=== PATIENT | female | born 1960 | race Caucasian/White ===

== ENCOUNTER 2017-04-09 21:36 | Inpatient (IN) | payer OTHER ==
--- NOTE | ~2017-04-09 | DS ---
Discharge Summary [address] [place]. [address] NAME: JOCE ZAIDI : 62 STATUS : DIS IN PAT#: [id number] AGE: 56 ADM/REG DATE : 04/09/17 MR#: [id number] REPORT SERV DATE: 04/15/17 DICTATED BY: ERROL SANTOYO DATE: 04/14/17 REPORT STATUS : Draft TRANSCRIBED BY: MODL DATE: 04/14/17 ADMISSION DATE: 04/09/2017 DISCHARGE DATE: 04/14/2017 VASCULAR SURGERY: Dr. Givens. FINAL DIAGNOSES: 1. Right lower extremity cellulitis with ulceration and chronic lymphedema. 2. Status post urinary tract infection. Unfortunately, no organism found. 3. Chronic hypoxic respiratory failure. 4. Chronic obstructive pulmonary disease. 5. OHS. 6. Obstructive sleep apnea. 7. Atrial fibrillation with history of pulmonary embolism and deep venous thrombosis. 8. Coronary artery disease. 9. Chronic diastolic congestive heart failure. 10.Hypertension. 11.Diabetes. 12.Tobacco abuse. 13.Morbid obesity. 14.History of seizures, noncompliance. 15.Chronic pain. 16.Hyponatremia. DIAGNOSTIC EXAMS: Ultrasound: Duplex showing monophasic waveforms, ABIs appeared normal. The monophasic waveform, however, could reflect distal aortic or iliac stenosis. Ultrasound of the lower extremities showing no DVT. HOSPITAL COURSE: Please refer to the H and P done by Dr. Rodriguez dated 04/09/2017. Briefly, this is a 56-year-old female, who comes in with cellulitis and ulceration. The patient has a history of diabetes, atrial fibrillation, CAD, chronic diastolic congestive heart failure, chronic hypoxic respiratory failure, yet continues to smoke and noncompliant with her medications. She was recently treated for MRSA bacteremia in [place], and then at outpatient, she was following up with Dr. Givens for her chronic wound. The patient went to [place] for back and leg pain and had a fall. The patient was found to have cellulitis of the right lower extremity and was referred for admission here. The patient was admitted by Dr. Rodriguez and was treated with antibiotics. We got Vascular Surgery involved and they prescribed Unna boots and said to follow up on an outpatient basis. Meanwhile, the patient's blood sugar has been elevated. We got critical care educator involved, and they figured out that the patient is erratic in taking her long-acting and short-acting insulin. She does not even know the difference between the two. With extensive counseling, she was taught about this, and I told her the importance of being adherent. We started giving her the medications for her hemoglobin that is elevated at 10.9. Unfortunately there was one point wherein she became hypoglycemic that we have to cut down on her insulin requirements. The patient was seen by Physical Therapy as well and they recommended that the patient go home with home health and home PT. So, if the patient remained stable today, she will be Discharge Summary [address] [address] NAME: JOCE ZAIDI : 62 STATUS : DIS IN PAT#: [id number] AGE: 56 ADM/REG DATE : 04/09/17 MR#: [id number] REPORT SERV DATE: 04/15/17 DICTATED BY: ERROL SANTOYO DATE: 04/14/17 REPORT STATUS : Draft TRANSCRIBED BY: ASHLEY DATE: 04/14/17 going home. We will arrange for home health and home PT. She will be on the following medications. Lipitor 20 mg at bedtime. Sinemet 25/100 one tab three times a day, Coreg 6.25 mg twice a day, Colace 100 mg p.r.n., Duricef 1000 mg twice a day. I will give her a prescription for another week, Lantus 30 units subcu twice a day, Claritin 10 mg a day, multivitamin once a day, Bactroban ointment to affected areas, Nystatin twice a day to affected areas, Requip 10 mg three times a day, Xarelto 20 mg a day, Symbicort 160/4.5 inhaled twice a day, DuoNebs inhaled q.4 hours p.r.n., albuterol t.i.d., QVAR two puffs three times a day. She will be off the Lanoxin, diltiazem, and Robaxin, but she can continue her Nitrostat p.r.n., Percocet 10/325 q.4 hours p.r.n., MiraLAX one packet a day for constipation, potassium 20 mEq a day, Bumex 0.5 mg twice a day, Zonegran 100 mg three times a day, Spiriva one capsule inhaled a day. The patient would probably benefit from Pain Management and further diabetic classes or spanish tutor, but I would defer this to her PCP, which she needs to follow up in a week or two and follow up with Dr. Givens as scheduled. This has been explained to the patient at length in front of the family member and they agreed and understood the plan. NIKKO/ASHLEY Errol Santoyo M.D. / [id number] CC: Inessa Jerome AMIE SIMS
--- NOTE | ~2017-04-09 | HP ---
History And Physical [address] [place]. [address] NAME: JOCE ZAIDI : 62 STATUS : ADM IN PAT#: [id number] AGE: 56 ADM/REG DATE : 04/09/17 MR#: [id number] REPORT SERV DATE: 04/10/17 DICTATED BY: SPENCER RODRIGUEZ DATE: 04/09/17 REPORT STATUS : Draft TRANSCRIBED BY: MODL DATE: 04/09/17 DATE OF ADMISSION: 04/09/2017 CHIEF COMPLAINT: Right lower extremity cellulitis and ulcerations. Patient admitted as direct admission/transfer from outside hospital facility. HISTORY OF PRESENT ILLNESS: Obtained from the patient as well as from reports from the emergency room department at [facility] as well as our prior medical records which were thoroughly reviewed. According to the information available, patient is a 56-year-old white woman with a complex medical history, known to our Hospitalist Service from prior admissions who was actually admitted at [facility] from 03/18/2017 until 03/21/2017. At that time, she was treated with Zyvox for MRSA bacteremia as well as was noticed to have increasing problem with her chronic lymphedema of both lower extremities and chronic venous stasis as well as developing chronic wounds on both calves. She was supposed to follow up with Dr. Givens, Vascular Surgery, and also she apparently followed up in her account with the [facility]. Patient presented today to the emergency department at [facility] in [place], [place] by EMS because of back and leg pain. She apparently fell out of the bed two days ago and since then hurt her back and has continued to have back pain and right lower leg pain. In the emergency room at [facility], patient was investigated and was noticed to have extensive cellulitis of the right calf with a rather increase in the larger wound on the posterior aspect of the calf, slightly elevated white cell count. Due to her medical problems and history as well as with apparent failure of outpatient treatment on her wound care and cellulitis of the lower extremity, patient was referred to the Hospitalist Service as a direct admission being transferred to [facility] in [place] for further management and evaluation and vascular surgery consult and followup. Presently, patient has arrived and complaining of pain with vital signs in stable range. Apparently, patient has received treatment prior to leaving [facility] with IV Rocephin and IV vancomycin 1 g. PAST MEDICAL HISTORY: Very complex, significant for COPD, on chronic home oxygen dependency on 4 to 6 L by nasal cannula with known obstructive sleep apnea and obesity hypoventilation syndrome. The patient apparently, according to prior history, has used BiPAP at night in the past, apparently not using it at this moment. History of prior recurrent PEs and DVTs; history of ongoing tobacco abuse despite strong advice to quit doing so; history of CHF with chronic diastolic dysfunction; history of hypertension; apparently history of coronary artery disease; history of chronic atrial fibrillation, presently on chronic anticoagulation with Xarelto; history of diabetes type 2, insulin dependent; history of morbid obesity; history of hyperlipidemia; history of chronic lymphedema/chronic wounds of the lower extremity, being followed by a [facility] and also by Dr. 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 PAST SURGICAL HISTORY: Oophorectomy with reported history of ovarian cancer (?), history of History And Physical [address] [address] NAME: JOCE ZAIDI : 62 STATUS : ADM IN [facility]#: [id number] AGE: 56 ADM/REG DATE : 04/09/17 MR#: [id number] REPORT SERV DATE: 04/10/17 DICTATED BY: SPENCER RODRIGUEZ DATE: 04/09/17 REPORT STATUS : Draft TRANSCRIBED BY: MODL DATE: 04/09/17 vocal cord surgery in the past, history of hernia repairs, history of tonsillectomy. ALLERGIES: TO HALDOL, MORPHINE WHICH MAKES HER AGITATED AND CONFUSED, HYDROCODONE, AND DEMEROL. HOME MEDICATION LIST: Presently not verified. According to the discharge medication list from [facility] on 03/21/2017, patient was supposed to take Symbicort inhalation b.i.d., Sinemet 25/100 one p.o. t.i.d., Coreg 6.25 one p.o. b.i.d., Claritin 10 mg p.o. daily, Crestor 20 mg p.o. at bedtime, nifedipine 60 mg p.o. b.i.d., Lasix 40 mg p.o. b.i.d., Neurontin 300 mg p.o. t.i.d., Lantus 50 units subcutaneously b.i.d. and sliding scale of NovoLog, Percocet 10/325 one p.o. t.i.d. p.r.n. pain, albuterol MDI two puffs q.4 hours p.r.n. shortness of breath, Zantac 150 mg p.o. b.i.d., Requip 5 mg p.o. t.i.d., Spiriva one inhalation daily, vitamin B12 1000 mcg p.o. daily, Xarelto 20 mg take two tablets p.o. daily (?). The patient also has been prescribed Zyvox 600 mg p.o. b.i.d., to complete the course through 04/01/2017. Please note that the above medication list might not be the one that is most up-to-date and is going to be addressed and corrected by the pharmacy consult. FAMILY HISTORY: Significant for diabetes, coronary artery disease, hypertension. SOCIAL HISTORY: The patient continues to smoke. Denies alcohol abuse. Denies illicit or recreational drug abuse. The patient lives at home with family, presently disabled. REVIEW OF SYSTEMS: As per H and P, otherwise negative in all review of systems. Please note that the comprehensive review of system was obtained and pertinent positives are including in the H and P. PHYSICAL EXAMINATION: GENERAL: Pleasant, cooperative, but pale and ill appearing, in mild distress due to the pain. VITAL SIGNS: At the time of arrival to our hospital, blood pressure 128/56, pulse 98, respiratory rate 18, temperature 98.2, oxygen saturation 100%, apparently on 4 L by nasal cannula. HEENT: Pupils equal, round, and reactive to light. Extraocular movements intact. Throat, mild erythema. No exudate. No signs of tenderness. NECK: Supple. No JVD. No bruits. No thyromegaly. No lymph nodes. LUNGS: Bilateral air entry, diminished distant breath sounds bilaterally. Good airway movement and few bibasilar crackles. No wheezing. HEART: Positive S1, S2. Distant heart sounds. Regular rate and rhythm with positive use of mitral regurgitation, murmur at the apex. No rub. No gallop. PMI not displaced by palpation. ABDOMEN: Positive bowel sounds. Soft, nontender, no guarding, no hepatosplenomegaly. Morbidly obese. EXTREMITIES: Decreased range of motion, osteoarthritic changes. No clubbing, no cyanosis, +1 pulses. Bilateral lower extremity redness and chronic stasis dermatitis and edema with cellulitic changes on the right calf up to the knee with apparently ulceration and more acute looking chronic ulceration in the back of the right calf. Presently clean with no History And Physical [address] [address] NAME: JOCE ZAIDI : 62 STATUS : ADM IN [facility]#: [id number] AGE: 56 ADM/REG DATE : 04/09/17 MR#: [id number] REPORT SERV DATE: 04/10/17 DICTATED BY: SPENCER RODRIGUEZ DATE: 04/09/17 REPORT STATUS : Draft TRANSCRIBED BY: ASHLEY DATE: 04/09/17 significant purulent drainage, but reported from [facility] as having a purulent drainage. NEUROLOGIC: Alert and oriented x3. Grossly nonfocal. Anxious. Cranial nerves II through XII grossly intact. Motor strength 5/5, symmetric and bilateral. Deep tendon reflexes 2/2, symmetrical and bilateral. BACK: With decreased range of motion. Bilateral focal localized tenderness. No CVA tenderness. SKIN: No bruises, no rashes, no lacerations (besides the above mentioned changes at lower extremities). SIGNIFICANT LABORATORY DATA: No laboratory data available as patient is a direct admission/transfer from outside hospital facility. Review of the medical records sent over with patient from [facility] showed sodium 127, potassium 5.3, chloride 93, bicarbonate 29, BUN 49 creatinine 1.4 (normal creatinine below 1.1). Liver function tests within normal limits. Glucose 272. Lactic acid 0.7 which is within normal limits. Urinalysis showing cloudy urine, small LE, positive nitrates with white cells 23 and many bacteria. White cell count 12.1, hemoglobin 10.6, platelet count 315. ASSESSMENT AND PLAN AND PROBLEM LIST: The patient is a 56-year-old white woman looking much older than stated age, admitted with progressive wound and cellulitis of the right lower extremity. IMPRESSION: 1. Right lower extremity ulcerations/wound with progressive right lower extremity cellulitis with bilateral chronic lymphedema and chronic stasis dermatitis, apparently failed outpatient treatment. For all the above, we are going to admit her on the Hospitalist Service under telemetry setting. We are going to continue IV antibiotics with IV vancomycin. We are going to obtain blood cultures and wound cultures and continue to monitor clinically, provide wound care and wound care consult. Obtain consultation with Dr. Givens, vascular surgeon, as she was supposed to follow with him this week. 2. Urinary tract infection (likely) without hematuria. As per urinalysis from outside hospital facility, we are going to continue antibiotics with IV Rocephin for now and obtain another urine and a urine culture. 3. Endocrinologic problems. a. Diabetes type 2, insulin dependent with complications. We are going to continue long-acting insulin, Lantus or Levemir, and a sliding scale, provide diabetic education. b. Morbid obesity, encouraged weight loss. c. Hyperlipidemia, mixed type. Continue statin, provide low cholesterol diet. 4. Acute kidney injury on chronic kidney disease, stage II to stage III. We are going to monitor renal function for now. We will obtain urinalysis. Avoid nephrotoxic agents. Strict I's and O's and daily weights. 5. Pulmonary. a. Chronic obstructive pulmonary disease with chronic home oxygen dependent. b. Obstructive sleep apnea and obesity hypoventilation syndrome. History And Physical [address] [address] NAME: JOCE ZAIDI : 62 STATUS : ADM IN [facility]#: [id number] AGE: 56 ADM/REG DATE : 04/09/17 MR#: [id number] REPORT SERV DATE: 04/10/17 DICTATED BY: SPENCER RODRIGUEZ DATE: 04/09/17 REPORT STATUS : Draft TRANSCRIBED BY: MODKostas DATE: 04/09/17 c. Tobacco dependency disorder, [id number]. d. History of recurrent pulmonary embolism. For all the above, we are going to continue oxygen supplementation at patient's has a baseline oxygen apparently 4 L of oxygen. Please note that at times it seemed that, in our medical records, the patient has 100% saturation even in room air. We are going to continue bronchodilator therapy and provide smoking cessation education and offer nicotine replacement therapy as a nicotine patch 21 mg daily. 6. Cardiovascular. a. Essential hypertension. b. History of coronary artery disease, presently stable. c. Congestive heart failure by history with chronic diastolic dysfunction. d. Atrial fibrillation, chronic, present on admission. For all the above, we are going to continue the patient's Coreg. We are going to continue anticoagulation with Xarelto. We are going to obtain EKG and place him on telemetry, check CK and troponin I. hold the Lasix for now as it is uncertain if the patient was still on it recently. 7. Reported recent MRSA bacteremia, on Zyvox until 04/01/2017 as per discharge summary from [place]. We are going to obtain blood cultures and continue to monitor clinically. Low threshold for involving Infectious Disease consult. 8. Neurologic and psychiatric problem. a. Parkinson disease. b. Restless leg syndrome. c. History of cerebrovascular accident with cerebrovascular disease and mild residual right upper extremity weakness. d. Seizure disorder, also by history. For all the above, we are going to continue patient's Requip, patient's Sinemet, and continue to monitor clinically. 9. Chronic anticoagulation on Xarelto. We are going to continue Xarelto 20 mg daily. 10.Poor medical compliance. PROGNOSIS: Moderate for this admission and rather poor in medium and long-term. Please note, the patient is a full code at this moment as discussed with the patient at bedside. Please note, also the written H and P, and written orders and instructions. RF/ASHLEY Spencer Rodriguez M.D. / [id number] CC: Adiel Givens M.D.
[~2017-04-09 21:36] MED LIST: ALB4 PO; BACDS PO; BACTROINT TOP; BUDESONIDE NAS; CARDCD180 PO; CLARIT10 PO; CLONAZEPAM PO; COREG6 PO; DIAM250B PO; DIGITEK0.25 MG PO; DSS PO; DUONEB INH; ENDOCET1 TA3 PO; HALF81 PO; HUMALIN R; HUMULIN R1 ML SC; INSNOVR; INSNOVR SC; IVVIBRA PO; K500 PO; KLONO5 PO; KLOR-CON M2020 MEQ PO; L80 PO; LANTUS; LANTUS SC; LEVEMIR SC; LIPITOR20 PO; LYRICA200 MG PO; METHOC500B PO; METHOC750B PO; MIRALAXPKT PO; NEUR300 PO; NITROSTAT0.4 MG SL; NOVOLOG SC; NYSTOP100000 MG TOP; OMNICEF300 PO; P10 PO; P20 PO; PERCOCET1 TA4 PO; PROVHFA INH; QVAR80 MCG INH; REFRES1 OPH; REQUIP5 MG PO; RHINOCORT NAS; RHINOCORT NASAL NAS; SILVASORB TOP; SIN25 PO; SPIRIVA INH; SYMBICORT 160/41 INH INH; T300 PO; THEO24300 PO; XARELTO20 MG PO; ZANTAC 150 PO; ZANTAC150 MG PO; ZONEGRAN PO; [UNRECOGNIZED DRUG - OTHER]; [UNRECOGNIZED DRUG - OTHER]; [UNRECOGNIZED DRUG - OTHER]; [UNRECOGNIZED DRUG - OTHER]
[2017-04-09 23:45] LABS: BASOPHILS 0.3 %; BASOPHILS ABSOLUTE 0.03 10/3/uL (0.0-0.16); EOSINOPHILS 7.7 %; EOSINOPHILS ABSOLUTE 0.76 10/3/uL (0.0-0.53); HEMATOCRIT 30.9 % (36.0-48.0); HEMOGLOBIN 10.1 g/dL (12.0-16.0); IMMATURE GRANULOCYTES 0.5 %; IMMATURE GRANULOCYTES ABSOLUTE 0.05 10/3/uL (0.0-0.11); LYMPHOCYTES 19.9 %; LYMPHOCYTES ABSOLUTE 1.96 10/3/uL (0.67-4.30); MEAN CORPUS HGB CONC 32.7 g/dL (32.0-36.0); MEAN CORPUSCULAR HEMOGLOB 27.7 pg (26.0-34.0); MEAN CORPUSCULAR VOLUME 84.7 fL (80-100); MEAN PLATELET VOLUME 9.3 fL (9.2-13.0); MONOCYTES 7.8 %; MONOCYTES ABSOLUTE 0.77 10/3/uL (0.21-1.20); NEUTROPHILS 63.8 %; PLATELET COUNT 294 10/3/uL (150-400); RED CELL COUNT 3.65 10/6/uL (4.0-5.6); WHITE BLOOD CELLS 9.9 10/3/uL (4.5-10.5)
[2017-04-09 23:46] LABS: MANUAL DIFF NO %
[2017-04-10 00:03] LABS: A/G RATIO 0.5 (0.7-1.9); ALBUMIN 2.4 G/DL (3.5-5.0); ALKALINE PHOSPHATASE 79 U/L (45-117); CALCIUM, SERUM 8.7 MG/DL (8.5-10.4); CHLORIDE, SERUM 100 MMOL/L (96-112); CO2 (CARBON DIOXIDE) 30 MMOL/L (24-34); CPK 67 U/L (0-200); CREATININE 1.24 MG/DL (0.55-1.02); GFR AFRICAN AMERICAN 57 ML/MIN (>=60); GFR NON AFRICAN AMERICAN 49 ML/MIN (>=60); GLOBULIN 4.6 G/DL (2.5-4.1); PHOSPHORUS, SERUM 3.7 MG/DL (2.5-4.5); SGOT(AST) 7 U/L (5-40); SGPT(ALT) 11 U/L (5-65); SODIUM, SERUM 135 MMOL/L (135-148); TROPONIN I <0.02 NG/ML (<0.05)
[2017-04-10 00:04] LABS: BUN (BLOOD UREA NITROGEN) 45 MG/DL (6-23); CK-MB 2.1 NG/ML; GLUCOSE, SERUM 230 MG/DL (60-99); POTASSIUM, SERUM 4.7 MMOL/L (3.5-5.3); TOTAL BILIRUBIN < 0.1 MG/DL (0-1.2)
[2017-04-10 01:07] LABS: PROCALCITONIN 0.07 ng/mL (<0.5)
[2017-04-10 02:51] LABS: ASCORBIC ACID (UR NOT ORDER) NEG (NEG); BILIRUBIN, URINE NEGATIVE (NEG); KETONE, URINE NEGATIVE (NEG); LEUKOCYTE ESTERASE(NOT OR LARGE (NEG); WBC (NOT ORDERED) (RFLEX) 155 (0-5)
[2017-04-10] MEDS ORDERED: DIAM250B PO (04:36)
[2017-04-10] MEDS ORDERED: DUONEB INH (04:37)
[2017-04-10] MEDS ORDERED: ALB4 PO (04:37)
[2017-04-10] MEDS ORDERED: LIPITOR20 PO (04:38)
[2017-04-10] MEDS ORDERED: SYMBICORT 160/41 INH INH (04:38)
[2017-04-10] MEDS ORDERED: QVAR80 MCG INH (04:39)
[2017-04-10] MEDS ORDERED: SIN25 PO (04:39)
[2017-04-10] MEDS ORDERED: COREG6 PO (04:39)
[2017-04-10] MEDS ORDERED: LAN25 PO (04:40)
[2017-04-10] MEDS ORDERED: CARDCD180 PO (04:40)
[2017-04-10] MEDS ORDERED: DSS PO (04:41)
[2017-04-10] MEDS ORDERED: LANTUS SQ (04:47)
[2017-04-10] MEDS ORDERED: METHOC750B PO (04:48)
[2017-04-10] MEDS ORDERED: CLARIT10 PO (04:48)
[2017-04-10] MEDS ORDERED: NYSTATPOW TOP (04:49)
[2017-04-10] MEDS ORDERED: NITROSTAT0.4 MG SL (04:49)
[2017-04-10] MEDS ORDERED: MIRALAX POWDER1 PKT PO (04:50)
[2017-04-10] MEDS ORDERED: PERCOCET 10/3251 TAB PO (04:50)
[2017-04-10] MEDS ORDERED: KDUR20 PO (04:51)
[2017-04-10] MEDS ORDERED: LYRICA200 MG PO (04:57)
[2017-04-10] MEDS ORDERED: ZANTAC 150 PO (04:58)
[2017-04-10] MEDS ORDERED: REQUIP5 MG PO (04:59)
[2017-04-10] MEDS ORDERED: XARELTO20 MG PO (04:59)
[2017-04-10] MEDS ORDERED: SILVASORB TOP (05:01)
[2017-04-10] MEDS ORDERED: T300 PO (05:02)
[2017-04-10] MEDS ORDERED: SPIRIVA INH (05:03)
[2017-04-10] MEDS ORDERED: BUDESONIDE INH (05:03)
[2017-04-10] MEDS ORDERED: BACTROINT TOP (05:05)
[2017-04-10] MEDS ORDERED: ZONEGRAN PO (05:06)
[2017-04-10] MEDS ORDERED: BUMEX PO (05:07)
[2017-04-11 06:02] LABS: CALCIUM, SERUM 8.6 MG/DL (8.5-10.4); CHLORIDE, SERUM 102 MMOL/L (96-112); CO2 (CARBON DIOXIDE) 28 MMOL/L (24-34); CREATININE 1.06 MG/DL (0.55-1.02); GFR AFRICAN AMERICAN 68 ML/MIN (>=60); GFR NON AFRICAN AMERICAN 59 ML/MIN (>=60); POTASSIUM, SERUM 4.8 MMOL/L (3.5-5.3); SODIUM, SERUM 136 MMOL/L (135-148)
[2017-04-11 06:09] LABS: BUN (BLOOD UREA NITROGEN) 31 MG/DL (6-23); GLUCOSE, SERUM 286 MG/DL (60-99)
[2017-04-14] MEDS ORDERED: DURICEF PO (11:35)
[2017-04-14] MEDS ORDERED: MVI PO (11:36)
[2017-04-14] MEDS ORDERED: HABIT21 TOP (11:36)
== END 2017-04-14 17:26 | disposition home or self-care (01) | DRG 638 ==
LOC: 2SO 21:36
PROVIDERS: Internal Medicine
DX: E11.622 Type 2 diabetes mellitus with other skin ulcer (principal); L03.115 Cellulitis of right lower limb; L97.211 Non-pressure chronic ulcer of right calf limited to breakdown of skin; J96.11 Chronic respiratory failure with hypoxia; N17.9 Acute kidney failure, unspecified; I50.32 Chronic diastolic (congestive) heart failure; I11.0 Hypertensive heart disease with heart failure; N18.3 Chronic kidney disease, stage 3 (moderate); I48.2 Chronic atrial fibrillation; G25.81 Restless legs syndrome; I12.9 Hypertensive chronic kidney disease with stage 1 through stage 4 chronic kidney disease, or unspecified chronic kidney disease; N39.0 Urinary tract infection, site not specified; E66.2 Morbid (severe) obesity with alveolar hypoventilation; I69.351 Hemiplegia and hemiparesis following cerebral infarction affecting right dominant side; Z68.43 Body mass index [BMI] 50.0-59.9, adult; E87.1 Hypo-osmolality and hyponatremia; G20 Parkinson's disease; I87.8 Other specified disorders of veins; W06.XXXA Fall from bed, initial encounter; G40.909 Epilepsy, unspecified, not intractable, without status epilepticus; G89.29 Other chronic pain; J44.9 Chronic obstructive pulmonary disease, unspecified; I25.10 Atherosclerotic heart disease of native coronary artery without angina pectoris; E66.01 Morbid (severe) obesity due to excess calories; E78.5 Hyperlipidemia, unspecified; G89.4 Chronic pain syndrome; Z86.14 Personal history of Methicillin resistant Staphylococcus aureus infection; Y92.003 Bedroom of unspecified non-institutional (private) residence as the place of occurrence of the external cause; Z88.8 Allergy status to other drugs, medicaments and biological substances; Z88.5 Allergy status to narcotic agent; Z82.49 Family history of ischemic heart disease and other diseases of the circulatory system; Z83.3 Family history of diabetes mellitus; Z91.19 Patient's noncompliance with other medical treatment and regimen; Z91.14 Patient's other noncompliance with medication regimen; Z86.718 Personal history of other venous thrombosis and embolism; Z86.711 Personal history of pulmonary embolism
CPT/HCPCS: 72100; 80048; 80053; 80202; 81001; 82550; 82553; 82947; 82962; 83036; 83735; 84100; 84145; 84484; 85025; 87040; 87086; 93005; 93925; 93970; 94640; 97161-GP; A9270-GY; J1170; J1200; J2405; J3370; J3475

== ENCOUNTER 2017-08-05 08:37 | Inpatient (IN) | payer OTHER ==
[~2017-08-05] VITALS: Ht 160 cm; Wt 150.0 kg
--- NOTE | ~2017-08-05 | HP ---
History And Physical [id number] [facility] [place]. [address] NAME: JOCE ZAIDI : 62 STATUS : ADM IN [facility]#: [id number] AGE: 56 ADM/REG DATE : 08/05/17 MR#: [id number] REPORT SERV DATE: 08/05/17 DICTATED BY: RAMAKRISHNA SERVIN DATE: 08/05/17 REPORT STATUS : Draft TRANSCRIBED BY: MODL DATE: 08/05/17 DATE OF ADMISSION: 08/05/2017 HISTORY OF PRESENT ILLNESS: This is a 56-year-old white female who came from [facility] for higher level of care. She was brought to that facility by ambulance early this morning because of shortness of breath in extremis. She also had issues of hypoglycemia and required glucose to correct. The patient's shortness of breath was pretty severe that showed also an abnormal arterial blood gas with a pH of 7.14, pCO2 of 108, pO2 of 121, and bicarb 37.2. There was concern for pneumonia at the [facility] facility and so the patient was given Levaquin, vancomycin, there is a question eric of Zosyn. She also got Solu-Medrol for steroids. She was intubated with Versed, etomidate, and paralytic. Pertinent labs at the [facility] showed a normal white blood cell count of 5.1, hemoglobin 9.9, platelets 174. The patient had normal BUN and creatinine of 18 and 1.3, but her serum bicarb was elevated at 39 on the metabolic panel. They reportedly did get two sets of blood cultures over there, and her lactate was normal. She also was found to have a low temperature of 92.3 degrees rectally. She came to our facility with a couple of peripheral IVs on the ventilator intubated with a 7-1/2 ET tube. We do know that she get some IV fluid boluses but it is unclear how much that she got. By the time we got her, she was on the ventilator breathing 14 times a minute, which was the set rate on the ventilator with a tidal volume of 450 and PEEP of 5 with the end-tidal CO2 hooked up and it was reading in the low 50s. We repeated a blood gas that showed a pH of 7.22, pCO2 of 77, pO2 of 176, bicarb 30.6, O2 saturation 99% on 100% FiO2. I did have the respiratory therapist as a result increased the set rate to help blow off more CO2. She did have elevated peak pressures in the high 30s to as high as the mid 40s. I was able to get a plateau pressure with repeat measurements being consistent of around 28-29 cm of water. I did also increase her PEEP up to 8 cm of water. REVIEW OF SYSTEMS: Unable to be obtained. PAST MEDICAL HISTORY: Morbid obesity, chronic respiratory failure, obstructive sleep apnea, obesity hypoventilation syndrome, COPD, DVT and PE by history, atrial fibrillation, Parkinson's, seizure disorder, type 2 diabetes, restless legs, venous stasis ulcer, lymphedema, diastolic dysfunction, hypertension, and dyslipidemia. PAST SURGICAL HISTORY: Oophorectomy, vocal cord surgery, hernia repair, tonsils. ALLERGIES: HALDOL, MORPHINE, HYDROCODONE, AND DEMEROL. MEDICATIONS: Outlined ER medication list is reviewed, but we will have the nurse or pharmacist get an organized updated list. FAMILY HISTORY: Diabetes, coronary artery disease, and hypertension. SOCIAL HISTORY: Continues to smoke. No alcohol or illicit drugs. Currently disabled, lives at home. History And Physical [address] [address] NAME: JOCE ZAIDI : 62 STATUS : ADM IN [facility]#: [id number] AGE: 56 ADM/REG DATE : 08/05/17 MR#: [id number] REPORT SERV DATE: 08/05/17 DICTATED BY: RAMAKRISHNA SERVIN DATE: 08/05/17 REPORT STATUS : Draft TRANSCRIBED BY: ASHLEY DATE: 08/05/17 PHYSICAL EXAMINATION: VITAL SIGNS: Per nursing flow sheet. GENERAL: In no acute distress, intubated. NEURO: Unresponsive secondary to sedation. ENT: Normocephalic and atraumatic. Pupils are equal. Neck very large neck circumference secondary to adipose tissue. HEART: Regular rate and rhythm. No murmurs. LUNGS: Bilateral expiratory wheezing. Ventilator settings are reviewed. GI: Morbidly obese abdomen, there is a little bit of an ulcerative lesion on the belly that has a little bit of erythema around it, not really having any pus expressed from it and is not very indurated. LEGS: She has horrendous amount of lymphedema in both legs and bad ulcers in both legs as well. : Neves catheter replaced. LABS AND DIAGNOSTIC DATA: Outlying labs reviewed and our chest x-ray reviewed post intubation after her arrival shows an area of large amount consolidation in right lower lobe with some patchiness in the right upper lobe and left lower lobe. ET tube is in good position. ASSESSMENT AND PLAN: 1. Acute on chronic hypoxic and hypercapnic respiratory failure. 2. Chronic obstructive pulmonary disease exacerbation. 3. Pneumonia would be favored over atelectasis. 4. Obesity hypoventilation syndrome, obstructive sleep apnea, and morbid obesity. 5. Lower extremity wounds. 6. Type 2 diabetes with hypoglycemia today. 7. Deep vein thrombosis and pulmonary embolism by history. 8. Diastolic heart failure per echo 2016. Neuro, she will be sedated with Precedex to control, comfort. She currently is normotensive, but we will keep an eye on this for now. Hold off on any maintenance IV fluids and currently not requiring any pressors. We will start consulting nutrition for tube feed recommendations. As far as respiratory status, she will be maintained on the ventilator and those settings were ordered of a respiratory rate of 20, tidal volume 450, PEEP of 8, and we will try to wean the oxygen down as able. She is on broad-spectrum antibiotics, which include vancomycin and Zosyn probably to cover this presumed pneumonia. She will be on DuoNebs, Brovana, and Pulmicort nebulizer medications and also add Solu- Medrol IV. Keep her on her Xarelto, which is her home medicine for now, and she also has GI prophylaxis with Protonix. We will check glucose checks until her blood sugar is stable and then use a sliding scale as needed. Get wound care to come see her as well. Plethora of cultures and labs are also ordered. 40 minutes of critical care time. History And Physical [address] [address] NAME: JOCE ZAIDI : 62 STATUS : ADM IN [facility]#: [id number] AGE: 56 ADM/REG DATE : 08/05/17 MR#: [id number] REPORT SERV DATE: 08/05/17 DICTATED BY: RAMAKRISHNA SERVIN DATE: 08/05/17 REPORT STATUS : Draft TRANSCRIBED BY: MODL DATE: 08/05/17 CEP/MODL Ramakrishna Servin DO / [id number] CC: DO Ian Meza M.D.
--- NOTE | ~2017-08-05 | CN ---
Consultation Report [facility] [address] [place]. [address] NAME: JOCE ZAIDI : 62 STATUS : ADM IN PAT#: [id number] AGE: 56 ADM/REG DATE : 08/05/17 MR#: [id number] REPORT SERV DATE: 08/05/17 DICTATED BY: DATE: REPORT STATUS : Draft TRANSCRIBED BY: MODL DATE: 08/05/17 NEUROLOGY CONSULTATION DATE OF CONSULTATION: 08/05/2017 REASON FOR CONSULTATION: Possible seizure activity. HISTORY OF PRESENT ILLNESS: This is a 56-year-old female, presented to [facility] as a transfer from outside facility secondary to increased respiratory issues. The patient was intubated at an outside facility secondary to abnormal arterial blood gas with pH of 7.1 and pCO2 of 70. The patient in addition was also noted to be hypoglycemic and was subsequently resuscitated and transferred to [facility] for further evaluation. Upon arrival to [facility], the patient was initially noted to be following commands by the nursing staff and subsequently started developing multifocal jerking episodes and does not follow commands. The patient was on propofol drip. Prior to hospitalization, the patient had hospital evaluation for cellulitis and subsequently discharged and the patient was eventually placed on hospice, but remains a full code. The patient's significant other reportedly reports the patient wants to continue to be a full code. No recent reports of illness were noted. PAST MEDICAL HISTORY: The patient's past medical history was noted to be complicated, significant for history of COPD, she is on chronic home oxygen, as well as history of apparent Parkinson disease, on Requip as well as Sinemet. The patient was also noted to have restless legs syndrome, chronic pain syndrome, chronic kidney disease; type 2 diabetes, insulin dependent; history of morbid obesity as well as obesity-associated hypoventilation syndrome; history of hyperlipidemia; chronic lymphedema as well as chronic wound where the patient has had previous cellulitis requiring hospital admission as well as antibiotic therapy. The patient apparently was on hospice after the patient's recent hospital discharge in 03/2017, although the patient apparently remains a full code. ALLERGIES: THE PATIENT WAS NOTED TO HAVE ALLERGY TO HALDOL, MORPHINE, HYDROCODONE, WELL DEMEROL. HOME MEDICATIONS: Reviewed. The patient was on Sinemet as well as Requip. No seizure medication was otherwise noted. FAMILY HISTORY: Significant for diabetes, coronary artery disease, and hypertension. SOCIAL HISTORY: Unfortunately, the patient apparently continued to smoke. No reports of alcohol or illicit drug usage was noted. REVIEW OF SYSTEMS: Unable to be obtained secondary to the patient's current mental status at the time of evaluation. Consultation Report [place] [address] [place]. [address] NAME: JOCE ZAIDI : 62 STATUS : ADM IN [facility]#: [id number] AGE: 56 ADM/REG DATE : 08/05/17 MR#: [id number] REPORT SERV DATE: 08/05/17 DICTATED BY: DATE: REPORT STATUS : Draft TRANSCRIBED BY: MODL DATE: 08/05/17 PHYSICAL EXAMINATION: VITAL SIGNS: Since the hospital admission, the patient was noted to have vital signs with a pulse of 61, respirations of 18, and blood pressure of systolic 150s. GENERAL: The patient is well developed and well nourished, in no acute distress. CARDIOVASCULAR: Regular rate and rhythm. No carotid bruits were otherwise auscultated. PULMONARY: Clear to auscultation bilaterally. NEUROLOGIC: Generally, the patient was intubated, was on propofol drip. The patient was noted to have a head shaking as well as jerking actions that appeared to be multifocal, concern for possible voluntary actions at the time of evaluation. The patient was otherwise nonverbal and does not appear to be following commands. Cranial nerves 2 through 12: Pupils are equal, round, and reactive to light. No clear blink to threat response. Horizontal eye movement was noted on oculocephalic maneuver. Trace corneal reflex was noted bilaterally and trace gag reflex was noted at the time of evaluation. Also, the patient noted to have grimace to noxious stimulation in bilateral jaw as well as noxious stimulation in bilateral upper and lower extremities. Deep tendon reflex was trace throughout. Gait and cerebellar examination are unable to be evaluated secondary to the patient's current mental status. The patient's jerking reaction seems to be somewhat worse with stimulation as well as observation. Again, some kind of voluntary response was also seen. LABORATORY DATA: At the time of evaluation, laboratory study demonstrated sodium 138, potassium 5.3, chloride of 99, bicarb 33, BUN of 18, creatinine 1.23, glucose of 99, calcium of 8.1, magnesium 1.8. Vitamin B12 of 345, folate of 16.5, TSH of 0.457 and free T4 of 1.17. White blood cell count of 3.3, hemoglobin of 10.6, hematocrit of 35.6, and platelet count of 179. Urinalysis demonstrated negative leukocyte esterase and negative nitrite. The patient's ABG obtained at [facility] demonstrated pH of 7.22, pCO2 of 77, pO2 of 176, bicarb of 30.6, and O2 saturation of 99.0. At the time of evaluation, no recent brain imaging was obtained. IMPRESSION: 1. Encephalopathy. 2. Jerking episodes, concern for possible myoclonus versus voluntary psychogenic movement. We will start the patient on Keppra 750 mg IV b.i.d. We will obtain EEG study. In addition, we will also check MRI of her brain without contrast as well as serum ammonia level. RECOMMENDATION: 1. Keppra 750 mg IV b.i.d. 2. EEG. 3. Serum ammonia level with morning labs. 4. MRI of the brain without contrast. [facility]/MODL Consultation Report [place] [id number] [facility] [place]. [address] NAME: JOCE ZAIDI : 62 STATUS : ADM IN [facility]#: [id number] AGE: 56 ADM/REG DATE : 08/05/17 MR#: [id number] REPORT SERV DATE: 08/05/17 DICTATED BY: DATE: REPORT STATUS : Draft TRANSCRIBED BY: ASHLEY DATE: 08/05/17 Vin Ramirez MD / [id number] CC: DO Ian Meza M.D.
--- NOTE | ~2017-08-05 | DS ---
Discharge Summary [place] [id number] [place]. [address] NAME: JOCE ZAIDI : 62 STATUS : ADM IN [facility]#: [id number] AGE: 56 ADM/REG DATE : 08/05/17 MR#: [id number] REPORT SERV DATE: 08/14/17 DICTATED BY: MELODY MENDIOLA DATE: 08/14/17 REPORT STATUS : Draft TRANSCRIBED BY: MODL DATE: 08/14/17 ADMISSION DATE: 08/05/2017 DISCHARGE DATE: 08/14/2017 DISCHARGE DIAGNOSES: 1. Acute on chronic hypercapnic respiratory failure. The patient is baseline her respiratory status. 2. extended-spectrum beta-lactamase Escherichia coli pneumonia. 3. Pulmonary edema, improved. Back to her regular dose of Lasix 40 mg twice a day. 4. Acute kidney injury on chronic kidney disease, improved back, normalized. 5. Obesity-hypoventilation syndrome and sleep apnea. The patient had BiPAP and now [facility] is arranging her home BiPAP on discharge since her previous one was taken away from the [facility]. 6. Multiple lower extremity wound ulcers. Was treated with Wound Care. 7. Diabetes mellitus with hypoglycemia. We are cutting down her Lantus to 20 units once a day rather than 50 units twice a day. 8. Morbid obesity. BMI of 59. BUSINESS AFFAIRS MANAGER: Critical Care Management. HISTORY OF PRESENT ILLNESS: This is a 56-year-old female patient who came to the hospital with a finding of hypercapnic respiratory failure from [facility]. Please see dictated H and P done by Dr. Servin. HOSPITAL COURSE: Please see dictated interim discharge summary done by Dr. Servin. The patient was admitted in ICU from the transfer from the [facility] due to the hypercapnic respiratory failure. She was treated with antibiotics for the ESBL pneumonia as well and mechanical ventilation. She was weaned off eventually without any problem and transferred to cardiac tele floor. I assumed the case the day before of discharge. The patient is back on her mental status and normal status, and she voiced that she wanted to have hospice care on discharge, so the patient is referred to the [facility] this time, and they are arranging home BiPAP as well and all medication support. DISCHARGE MEDICATIONS: 1. Coreg was decreased to 6.25 mg twice a day. 2. Lasix 40 mg twice a day. 3. Lantus was decreased to 20 units once at night. 4. Keppra was started on this admission 500 mg twice a day. 5. Ativan was decreased to 0.5 mg every eight hours. 6. MiraLAX powder once a day. 7. Lyrica 200 mg three times a day. 8. Requip 5 mg three times a day. 9. Zonisamide 100 mg four times a day. 10.Theophylline was discontinued. Discharge Summary [place] [address] [address] NAME: JOCE ZAIDI : 62 STATUS : ADM IN PAT#: [id number] AGE: 56 ADM/REG DATE : 08/05/17 MR#: [id number] REPORT SERV DATE: 08/14/17 DICTATED BY: MELODY MENDIOLA DATE: 08/14/17 REPORT STATUS : Draft TRANSCRIBED BY: ASHLEY DATE: 08/14/17 11.Claritin once a day. 12.Dilaudid was discontinued. 13.Cardizem was discontinued. 14.Flexeril was discontinued. 15.Roxicodone was discontinued. 16.Potassium is decreased 20 mEq once a day. 17.Continue Crestor 30 mg once at nighttime. 18.Percocet 5 was given for pain control. Overall, the patient's chronic pain medication was decreased on this admission. 19.Xarelto was renewed on this admission 20 mg once at night. TIME SPENT: More than 30 minutes. DISPOSITION: The patient is discharged to her home with [facility]. EKL/MODL Melody Mendiola M.D. / [id number] CC: Inessa Sims M.D.
--- NOTE | ~2017-08-05 | IDS ---
Interim Discharge Summary [facility] [address] [place]. [address] NAME: JOCE ZAIDI : 62 STATUS : ADM IN PAT#: [id number] AGE: 56 ADM/REG DATE : 08/05/17 MR#: [id number] REPORT SERV DATE: 08/09/17 DICTATED BY: RAMAKRISHNA SERVIN DATE: 08/09/17 REPORT STATUS : Draft TRANSCRIBED BY: MODL DATE: 08/09/17 ADMISSION DATE: 08/05/2017 DISCHARGE DATE: DIAGNOSES: 1. Acute on chronic hypercapnic and hypoxic respiratory failure. 2. ESBL E coli pneumonia. 3. Pulmonary edema. 4. Acute kidney injury on chronic kidney disease. 5. Questionable seizure activity. 6. Type 2 diabetes with hyperglycemia. 7. Obesity hypoventilation syndrome and obstructive sleep apnea. 8. Lymphedema with ulceration. 9. Chronic obstructive pulmonary disease. HOSPITAL COURSE: Please see my H and P from 08/05/2017. Briefly, patient came from [facility] for higher level of care. She was taken there by ambulance because of shortness of breath and was in extremis and had to be intubated. She also had an initial issues of hypoglycemia, but this was treated. She was very hypoxic and hypercapnic with a low pH. Initially was started on vancomycin and Zosyn for pneumonia, but this had to be changed to Merrem for an ESBL E coli. The patient was put on bronchodilators as well as steroids and has shown significant improvement over the course of the week. We have been doing daily weaning trials on her. Also had what initially appeared to the nurse as possible tonic-clonic seizure initially. Neurology was consulted and put the patient on Keppra. She is also on the zonisamide as an outpatient. Neurology signed off, but probably needs to follow up with Neurology as an outpatient. She does have significant lymphedema ulcers and these were wrapped by wound care. Having to adjust Levemir dosing for her hyperglycemia, we have been going down on her steroids and she are also getting diuretics for pulmonary edema. She did have an acute kidney injury, but this is getting better. What is interesting about her is that she used to be on hospice up until the time of this admission, but reportedly, they are thinking about removing her from hospice because she wanted aggressive care. There is a daughter who calls on occasion, but did not have the best relationship and there is a boyfriend. Right now, we are just doing daily weaning trials in hopes of being able to get her off the ventilator. CEP/MODL Ramakrishna Servin DO / [id number] CC: Ramakrishna Servin DO Interim Discharge Summary [address] [place]. [address] NAME: JOCE ZAIDI : 62 STATUS : ADM IN PAT#: [id number] AGE: 56 ADM/REG DATE : 08/05/17 MR#: [id number] REPORT SERV DATE: 08/09/17 DICTATED BY: RAMAKRISHNA SERVIN DATE: 08/09/17 REPORT STATUS : Draft TRANSCRIBED BY: MODL DATE: 08/09/17 Ian Richter M.D.
[~2017-08-05 08:37] MED LIST changes: +BUDESONIDE INH; +BUMEX PO; +DURICEF PO; +HABIT21 TOP; +KDUR20 PO; +LAN25 PO; +LANTUS SQ; +MIRALAX POWDER1 PKT PO; +MVI PO; +NYSTATPOW TOP; +PERCOCET 10/3251 TAB PO
[2017-08-05 11:14] LABS: BE (BASE EXCESS) 1.2 MEQ/L (0 +/- 2.5); CARBOXYHEMOGLOBIN 0.6 % (0-3); HCO3 (ACTUAL BICARBONATE) 30.6 MEQ/L (23-27); INSTRUMENT SERIAL # 35151; METHEMOGLOBIN 0.6 % (0-3); PCO2 (CO2 TENSION) 77 MMHG (35-45); PO2 (O2 TENSION) 176 MMHG (79-93); pH 7.22 (7.37-7.43)
[2017-08-05 11:15] LABS: ALLENS TEST Pos; HEMOBLOGIN CONTENT 11.2 G/DL (12-16); MODE CMV; O2 CONTENT 15.8 VOL% (18-24); OPERATOR ID 32199; SAMPLE Arterial; TIDAL VOLUME 450 ML
[2017-08-05 12:29] LABS: BASOPHILS 0.3 %; BASOPHILS ABSOLUTE 0.01 10/3/uL (0.0-0.16); EOSINOPHILS 1.8 %; EOSINOPHILS ABSOLUTE 0.06 10/3/uL (0.0-0.53); HEMOGLOBIN 10.6 g/dL (12.0-16.0); LYMPHOCYTES 24.7 %; LYMPHOCYTES ABSOLUTE 0.81 10/3/uL (0.67-4.30); MEAN CORPUSCULAR HEMOGLOB 28.3 pg (26.0-34.0); MEAN PLATELET VOLUME 9.2 fL (9.2-13.0); MONOCYTES 6.7 %; MONOCYTES ABSOLUTE 0.22 10/3/uL (0.21-1.20); NEUTROPHILS 66.5 %; NEUTROPHILS ABSOLUTE 2.18 10/3/uL (2.02-8.40); RBC DISTRIBUTION WIDTH 15.4 % (12.0-16.0); RED CELL COUNT 3.74 10/6/uL (4.0-5.6)
[2017-08-05 12:30] LABS: HEMATOCRIT 35.6 % (36.0-48.0); MANUAL DIFF NO %; MEAN CORPUS HGB CONC 29.8 g/dL (32.0-36.0); MEAN CORPUSCULAR VOLUME 95.2 fL (80-100); PLATELET COUNT 179 10/3/uL (150-400); WHITE BLOOD CELLS 3.3 10/3/uL (4.5-10.5)
[2017-08-05 12:43] LABS: INTERNATIONAL NORMAL RATI 1.1 UNITS (-); PARTIAL THROMBO TIME 31.6 SEC (22.5-37.2); PROTIME (NOT ORD) 13.9 SEC (12.0-14.5)
[2017-08-05 12:48] LABS: THEOPHYLLINE 6.6 MCG/ML (8.0-15.0)
[2017-08-05 12:51] LABS: ASCORBIC ACID (UR NOT ORDER) NEG (NEG); BILIRUBIN, URINE NEGATIVE (NEG); KETONE, URINE TRACE MG/DL (NEG); LEUKOCYTE ESTERASE(NOT OR NEG (NEG); WBC (NOT ORDERED) (RFLEX) 1 (0-5)
[2017-08-05 13:04] LABS: B NATRIURETIC PEPTIDE (BNP) 115.6 PG/ML (< 100.0)
[2017-08-05 13:05] LABS: PROCALCITONIN 0.16 ng/mL (<0.5)
[2017-08-05 13:10] LABS: A/G RATIO 0.7 (0.7-1.9); ALKALINE PHOSPHATASE 76 U/L (45-117); BUN (BLOOD UREA NITROGEN) 18 MG/DL (6-23); CALCIUM, SERUM 8.1 MG/DL (8.5-10.4); CHLORIDE, SERUM 99 MMOL/L (96-112); CK-MB 2.7 NG/ML; CO2 (CARBON DIOXIDE) 33 MMOL/L (24-34); CPK 105 U/L (0-200); CREATININE 1.23 MG/DL (0.55-1.02); FOLATE 16.5 NG/ML (>5.2); FREE T4 1.17 NG/DL (0.76-1.46); GFR AFRICAN AMERICAN 57 ML/MIN (>=60); GFR NON AFRICAN AMERICAN 49 ML/MIN (>=60); GLOBULIN 4.4 G/DL (2.5-4.1); GLUCOSE, SERUM 99 MG/DL (60-99); POTASSIUM, SERUM 5.3 MMOL/L (3.5-5.3); SGOT(AST) 22 U/L (5-40); SGPT(ALT) 7 U/L (5-65); SODIUM, SERUM 138 MMOL/L (135-148); TOTAL BILIRUBIN 0.5 MG/DL (0-1.2); TOTAL PROTEIN 7.4 G/DL (6.0-8.5); TROPONIN I <0.02 NG/ML (<0.05); ULTRASENSITIVE TSH 0.457 MCIU/ML (0.358-3.740)
[2017-08-05] MEDS ORDERED: REQUIP5 MG PO (13:24)
[2017-08-05] MEDS ORDERED: T300 PO (13:24)
[2017-08-05] MEDS ORDERED: L40 PO (13:24)
[2017-08-05] MEDS ORDERED: MIRALAX POWDER1 PKT PO (13:30)
[2017-08-05] MEDS ORDERED: CLARIT10 PO (13:31)
[2017-08-05] MEDS ORDERED: DIL4TAB PO (13:31)
[2017-08-05] MEDS ORDERED: CARD90 PO (13:31)
[2017-08-05] MEDS ORDERED: FLEX PO (13:31)
[2017-08-05] MEDS ORDERED: PR25 PO (13:31)
[2017-08-05] MEDS ORDERED: TESS PO (13:32)
[2017-08-05] MEDS ORDERED: ZANTAC150 MG PO (13:32)
[2017-08-05] MEDS ORDERED: ZONEGRAN PO (13:32)
[2017-08-05] MEDS ORDERED: COREG12 PO (13:32)
[2017-08-05] MEDS ORDERED: ATV1 PO (13:32)
[2017-08-05] MEDS ORDERED: LYRICA200 MG PO (13:33)
[2017-08-05] MEDS ORDERED: OXYCOD PO (13:33)
[2017-08-05] MEDS ORDERED: CRESTOR10 PO (13:34)
[2017-08-05] MEDS ORDERED: KDUR20 PO (13:34)
[2017-08-05] MEDS ORDERED: LANTUS SC (13:34)
[2017-08-05] MEDS ORDERED: DUONEB INH (13:34)
[2017-08-05 15:15] LABS: ALLENS TEST Pos; BE (BASE EXCESS) 5.4 MEQ/L (0 +/- 2.5); HCO3 (ACTUAL BICARBONATE) 32.7 MEQ/L (23-27); HEMOBLOGIN CONTENT 10.4 G/DL (12-16); INSTRUMENT SERIAL # 8083; METHEMOGLOBIN 0.1 % (0-3); PCO2 (CO2 TENSION) 63 MMHG (35-45); PO2 (O2 TENSION) 79 MMHG (79-93); SAMPLE Arterial; pH 7.33 (7.37-7.43)
[2017-08-05] MEDS ORDERED: HUMALOG SC (17:59)
[2017-08-05] MEDS ORDERED: HUMULIN R1 ML (17:59)
[2017-08-05] MEDS ORDERED: NITROSTAT0.4 MG SL (17:59)
[2017-08-05] MEDS ORDERED: FLONASE NAS (18:00)
[2017-08-05] MEDS ORDERED: OCEAN NAS (18:00)
[2017-08-05 22:44] LABS: GLYCOHEMOGLOBIN (HbA1c) 8.1 % (4.7-6.1)
[2017-08-06 06:51] LABS: BASOPHILS 0 %; EOSINOPHILS 0 %; HEMATOCRIT 31.5 % (36.0-48.0); HEMOGLOBIN 9.7 g/dL (12.0-16.0); IMMATURE GRANULOCYTES 0.6 %; IMMATURE GRANULOCYTES ABSOLUTE 0.02 10/3/uL (0.0-0.11); LYMPHOCYTES 16.7 %; MANUAL DIFF NO %; MEAN CORPUS HGB CONC 30.8 g/dL (32.0-36.0); MEAN PLATELET VOLUME 9.9 fL (9.2-13.0); MONOCYTES 1.9 %; MONOCYTES ABSOLUTE 0.07 10/3/uL (0.21-1.20); NEUTROPHILS 80.8 %; PLATELET COUNT 193 10/3/uL (150-400); RBC DISTRIBUTION WIDTH 15.2 % (12.0-16.0); RED CELL COUNT 3.46 10/6/uL (4.0-5.6); WHITE BLOOD CELLS 3.6 10/3/uL (4.5-10.5)
[2017-08-06 07:28] LABS: CALCIUM, SERUM 8.3 MG/DL (8.5-10.4); CHLORIDE, SERUM 99 MMOL/L (96-112); CO2 (CARBON DIOXIDE) 29 MMOL/L (24-34); CREATININE 1.09 MG/DL (0.55-1.02); GFR AFRICAN AMERICAN 66 ML/MIN (>=60); GFR NON AFRICAN AMERICAN 57 ML/MIN (>=60); POTASSIUM, SERUM 4.9 MMOL/L (3.5-5.3); SODIUM, SERUM 137 MMOL/L (135-148)
[2017-08-06 07:29] LABS: BUN (BLOOD UREA NITROGEN) 25 MG/DL (6-23); GLUCOSE, SERUM 197 MG/DL (60-99)
[2017-08-06 08:36] LABS: ALLENS TEST Pos; BE (BASE EXCESS) 0.7 MEQ/L (0 +/- 2.5); CARBOXYHEMOGLOBIN 1.2 % (0-3); HCO3 (ACTUAL BICARBONATE) 28.2 MEQ/L (23-27); HEMOBLOGIN CONTENT 10.9 G/DL (12-16); INSTRUMENT SERIAL # 8087; METHEMOGLOBIN 0.3 % (0-3); MODE CMV; O2 CONTENT 14.7 VOL% (18-24); OPERATOR ID 18642; PCO2 (CO2 TENSION) 60 MMHG (35-45); PO2 (O2 TENSION) 94 MMHG (79-93); SAMPLE Arterial; TIDAL VOLUME 450 ML; pH 7.29 (7.37-7.43)
[2017-08-07 03:30] LABS: ALLENS TEST Pos; BE (BASE EXCESS) 7.7 MEQ/L (0 +/- 2.5); CARBOXYHEMOGLOBIN 0.3 % (0-3); HCO3 (ACTUAL BICARBONATE) 34.2 MEQ/L (23-27); INSTRUMENT SERIAL # 35151; METHEMOGLOBIN 0.5 % (0-3); MODE CMV; O2 CONTENT 13.1 VOL% (18-24); OPERATOR ID 23712; PCO2 (CO2 TENSION) 60 MMHG (35-45); PO2 (O2 TENSION) 73 MMHG (79-93); SAMPLE Arterial; TIDAL VOLUME 500 ML; pH 7.38 (7.37-7.43)
[2017-08-07 04:33] LABS: BASOPHILS 0 %; EOSINOPHILS 0 %; HEMATOCRIT 29.9 % (36.0-48.0); HEMOGLOBIN 9.1 g/dL (12.0-16.0); IMMATURE GRANULOCYTES 0.3 %; IMMATURE GRANULOCYTES ABSOLUTE 0.02 10/3/uL (0.0-0.11); LYMPHOCYTES ABSOLUTE 0.47 10/3/uL (0.67-4.30); MEAN CORPUS HGB CONC 30.4 g/dL (32.0-36.0); MEAN CORPUSCULAR HEMOGLOB 27.4 pg (26.0-34.0); MEAN CORPUSCULAR VOLUME 90.1 fL (80-100); MEAN PLATELET VOLUME 9.5 fL (9.2-13.0); MONOCYTES 4.6 %; MONOCYTES ABSOLUTE 0.27 10/3/uL (0.21-1.20); NEUTROPHILS 87.1 %; NEUTROPHILS ABSOLUTE 5.11 10/3/uL (2.02-8.40); PLATELET COUNT 167 10/3/uL (150-400); RBC DISTRIBUTION WIDTH 15.6 % (12.0-16.0); RED CELL COUNT 3.32 10/6/uL (4.0-5.6)
[2017-08-07 04:34] LABS: MANUAL DIFF NO %; WHITE BLOOD CELLS 5.9 10/3/uL (4.5-10.5)
[2017-08-07 04:49] LABS: BUN (BLOOD UREA NITROGEN) 26 MG/DL (6-23); CALCIUM, SERUM 7.7 MG/DL (8.5-10.4); CHLORIDE, SERUM 100 MMOL/L (96-112); CO2 (CARBON DIOXIDE) 33 MMOL/L (24-34); CREATININE 1.16 MG/DL (0.55-1.02); GFR AFRICAN AMERICAN 61 ML/MIN (>=60); GFR NON AFRICAN AMERICAN 53 ML/MIN (>=60); POTASSIUM, SERUM 4.5 MMOL/L (3.5-5.3); SODIUM, SERUM 137 MMOL/L (135-148)
[2017-08-07 04:53] LABS: GLUCOSE, SERUM 289 MG/DL (60-99); PHOSPHORUS, SERUM 2.8 MG/DL (2.5-4.5)
[2017-08-08 07:17] LABS: BASOPHILS 0 %; EOSINOPHILS 0 %; HEMATOCRIT 30.3 % (36.0-48.0); HEMOGLOBIN 9.1 g/dL (12.0-16.0); IMMATURE GRANULOCYTES 0.5 %; IMMATURE GRANULOCYTES ABSOLUTE 0.02 10/3/uL (0.0-0.11); LYMPHOCYTES 14.9 %; LYMPHOCYTES ABSOLUTE 0.59 10/3/uL (0.67-4.30); MEAN CORPUSCULAR HEMOGLOB 27.7 pg (26.0-34.0); MEAN CORPUSCULAR VOLUME 92.1 fL (80-100); MEAN PLATELET VOLUME 9.4 fL (9.2-13.0); MONOCYTES 8.1 %; MONOCYTES ABSOLUTE 0.32 10/3/uL (0.21-1.20); NEUTROPHILS 76.5 %; NEUTROPHILS ABSOLUTE 3.02 10/3/uL (2.02-8.40); PLATELET COUNT 160 10/3/uL (150-400); RBC DISTRIBUTION WIDTH 15.6 % (12.0-16.0); RED CELL COUNT 3.29 10/6/uL (4.0-5.6)
[2017-08-08 07:18] LABS: MANUAL DIFF NO %
[2017-08-08 07:30] LABS: CALCIUM, SERUM 7.7 MG/DL (8.5-10.4); CHLORIDE, SERUM 99 MMOL/L (96-112); CO2 (CARBON DIOXIDE) 37 MMOL/L (24-34); CREATININE 1.01 MG/DL (0.55-1.02); GFR AFRICAN AMERICAN 73 ML/MIN (>=60); GFR NON AFRICAN AMERICAN 63 ML/MIN (>=60); GLUCOSE, SERUM 290 MG/DL (60-99); PHOSPHORUS, SERUM 2.6 MG/DL (2.5-4.5); SODIUM, SERUM 138 MMOL/L (135-148)
[2017-08-08 07:32] LABS: BUN (BLOOD UREA NITROGEN) 30 MG/DL (6-23)
[2017-08-08 07:55] LABS: PROCALCITONIN 0.17 ng/mL (<0.5)
[2017-08-09 04:27] LABS: BASOPHILS 0 %; EOSINOPHILS 0 %; HEMATOCRIT 32.8 % (36.0-48.0); HEMOGLOBIN 9.5 g/dL (12.0-16.0); IMMATURE GRANULOCYTES 0.2 %; IMMATURE GRANULOCYTES ABSOLUTE 0.01 10/3/uL (0.0-0.11); LYMPHOCYTES 16.8 %; LYMPHOCYTES ABSOLUTE 0.96 10/3/uL (0.67-4.30); MANUAL DIFF NO %; MEAN CORPUSCULAR HEMOGLOB 27.1 pg (26.0-34.0); MEAN CORPUSCULAR VOLUME 93.7 fL (80-100); MEAN PLATELET VOLUME 9.3 fL (9.2-13.0); MONOCYTES 6.1 %; MONOCYTES ABSOLUTE 0.35 10/3/uL (0.21-1.20); NEUTROPHILS 76.9 %; NEUTROPHILS ABSOLUTE 4.41 10/3/uL (2.02-8.40); PLATELET COUNT 153 10/3/uL (150-400); RBC DISTRIBUTION WIDTH 15.6 % (12.0-16.0); WHITE BLOOD CELLS 5.7 10/3/uL (4.5-10.5)
[2017-08-09 04:42] LABS: CALCIUM, SERUM 7.7 MG/DL (8.5-10.4); CHLORIDE, SERUM 99 MMOL/L (96-112); CO2 (CARBON DIOXIDE) 38 MMOL/L (24-34); CREATININE 0.92 MG/DL (0.55-1.02); GFR AFRICAN AMERICAN 81 ML/MIN (>=60); GFR NON AFRICAN AMERICAN 70 ML/MIN (>=60); GLUCOSE, SERUM 345 MG/DL (60-99); PHOSPHORUS, SERUM 2.5 MG/DL (2.5-4.5); POTASSIUM, SERUM 4.4 MMOL/L (3.5-5.3); SODIUM, SERUM 139 MMOL/L (135-148)
[2017-08-09 04:43] LABS: BUN (BLOOD UREA NITROGEN) 37 MG/DL (6-23)
[2017-08-10 03:36] LABS: BASOPHILS 0 %; EOSINOPHILS 0 %; HEMATOCRIT 31.7 % (36.0-48.0); HEMOGLOBIN 9.6 g/dL (12.0-16.0); IMMATURE GRANULOCYTES 0.2 %; IMMATURE GRANULOCYTES ABSOLUTE 0.01 10/3/uL (0.0-0.11); LYMPHOCYTES 15.1 %; LYMPHOCYTES ABSOLUTE 0.68 10/3/uL (0.67-4.30); MEAN CORPUS HGB CONC 30.3 g/dL (32.0-36.0); MEAN CORPUSCULAR HEMOGLOB 28.2 pg (26.0-34.0); MEAN PLATELET VOLUME 9.5 fL (9.2-13.0); MONOCYTES 6.9 %; MONOCYTES ABSOLUTE 0.31 10/3/uL (0.21-1.20); NEUTROPHILS 77.8 %; PLATELET COUNT 154 10/3/uL (150-400); RED CELL COUNT 3.41 10/6/uL (4.0-5.6); WHITE BLOOD CELLS 4.5 10/3/uL (4.5-10.5)
[2017-08-10 03:37] LABS: MANUAL DIFF NO %
[2017-08-10 03:51] LABS: BUN (BLOOD UREA NITROGEN) 34 MG/DL (6-23); CALCIUM, SERUM 7.4 MG/DL (8.5-10.4); CHLORIDE, SERUM 99 MMOL/L (96-112); CO2 (CARBON DIOXIDE) 35 MMOL/L (24-34); CREATININE 0.77 MG/DL (0.55-1.02); GFR AFRICAN AMERICAN 101 ML/MIN (>=60); GFR NON AFRICAN AMERICAN 87 ML/MIN (>=60); PHOSPHORUS, SERUM 2.6 MG/DL (2.5-4.5); POTASSIUM, SERUM 4.7 MMOL/L (3.5-5.3); SODIUM, SERUM 137 MMOL/L (135-148)
[2017-08-10 03:53] LABS: GLUCOSE, SERUM 352 MG/DL (60-99)
[2017-08-11 04:01] LABS: BASOPHILS 0 %; EOSINOPHILS 0.2 %; EOSINOPHILS ABSOLUTE 0.01 10/3/uL (0.0-0.53); HEMATOCRIT 34.4 % (36.0-48.0); HEMOGLOBIN 10.5 g/dL (12.0-16.0); IMMATURE GRANULOCYTES 0.4 %; IMMATURE GRANULOCYTES ABSOLUTE 0.02 10/3/uL (0.0-0.11); LYMPHOCYTES 21.1 %; LYMPHOCYTES ABSOLUTE 0.96 10/3/uL (0.67-4.30); MEAN CORPUS HGB CONC 30.5 g/dL (32.0-36.0); MEAN CORPUSCULAR HEMOGLOB 27.9 pg (26.0-34.0); MEAN CORPUSCULAR VOLUME 91.5 fL (80-100); MEAN PLATELET VOLUME 9.8 fL (9.2-13.0); MONOCYTES 7.2 %; MONOCYTES ABSOLUTE 0.33 10/3/uL (0.21-1.20); NEUTROPHILS 71.1 %; NEUTROPHILS ABSOLUTE 3.24 10/3/uL (2.02-8.40); PLATELET COUNT 174 10/3/uL (150-400); RBC DISTRIBUTION WIDTH 15.1 % (12.0-16.0); RED CELL COUNT 3.76 10/6/uL (4.0-5.6); WHITE BLOOD CELLS 4.6 10/3/uL (4.5-10.5)
[2017-08-11 04:02] LABS: MANUAL DIFF NO %
[2017-08-11 04:12] LABS: BUN (BLOOD UREA NITROGEN) 31 MG/DL (6-23); CALCIUM, SERUM 8.2 MG/DL (8.5-10.4); CHLORIDE, SERUM 98 MMOL/L (96-112); CO2 (CARBON DIOXIDE) 37 MMOL/L (24-34); CREATININE 0.63 MG/DL (0.55-1.02); GFR AFRICAN AMERICAN 117 ML/MIN (>=60); GFR NON AFRICAN AMERICAN 101 ML/MIN (>=60); GLUCOSE, SERUM 234 MG/DL (60-99); POTASSIUM, SERUM 4.5 MMOL/L (3.5-5.3); SODIUM, SERUM 138 MMOL/L (135-148)
[2017-08-11 15:04] LABS: ALLENS TEST Pos; BE (BASE EXCESS) 9.8 MEQ/L (0 +/- 2.5); CARBOXYHEMOGLOBIN 0.1 % (0-3); DEVICE NC; HCO3 (ACTUAL BICARBONATE) 37.2 MEQ/L (23-27); HEMOBLOGIN CONTENT 12.2 G/DL (12-16); INSTRUMENT SERIAL # 35151; METHEMOGLOBIN 0.4 % (0-3); O2 CONTENT 16.3 VOL% (18-24); OPERATOR ID 32214; PCO2 (CO2 TENSION) 65 MMHG (35-45); PO2 (O2 TENSION) 78 MMHG (79-93); SAMPLE Arterial; pH 7.38 (7.37-7.43)
[2017-08-12 04:07] LABS: BASOPHILS 0 %; EOSINOPHILS 0.7 %; EOSINOPHILS ABSOLUTE 0.04 10/3/uL (0.0-0.53); HEMOGLOBIN 11.5 g/dL (12.0-16.0); IMMATURE GRANULOCYTES 0.4 %; IMMATURE GRANULOCYTES ABSOLUTE 0.02 10/3/uL (0.0-0.11); LYMPHOCYTES 26.7 %; MEAN CORPUS HGB CONC 30.2 g/dL (32.0-36.0); MEAN CORPUSCULAR HEMOGLOB 27.6 pg (26.0-34.0); MEAN CORPUSCULAR VOLUME 91.6 fL (80-100); MEAN PLATELET VOLUME 9.7 fL (9.2-13.0); MONOCYTES 9.3 %; MONOCYTES ABSOLUTE 0.52 10/3/uL (0.21-1.20); NEUTROPHILS 62.9 %; NEUTROPHILS ABSOLUTE 3.53 10/3/uL (2.02-8.40); PLATELET COUNT 206 10/3/uL (150-400); RED CELL COUNT 4.16 10/6/uL (4.0-5.6); WHITE BLOOD CELLS 5.6 10/3/uL (4.5-10.5)
[2017-08-12 04:08] LABS: HEMATOCRIT 38.1 % (36.0-48.0); MANUAL DIFF NO %
[2017-08-12 04:18] LABS: BUN (BLOOD UREA NITROGEN) 31 MG/DL (6-23); CALCIUM, SERUM 8.3 MG/DL (8.5-10.4); CHLORIDE, SERUM 101 MMOL/L (96-112); CO2 (CARBON DIOXIDE) 37 MMOL/L (24-34); GFR AFRICAN AMERICAN 113 ML/MIN (>=60); GFR NON AFRICAN AMERICAN 98 ML/MIN (>=60); POTASSIUM, SERUM 4.7 MMOL/L (3.5-5.3); SODIUM, SERUM 142 MMOL/L (135-148)
[2017-08-12 04:20] LABS: GLUCOSE, SERUM 109 MG/DL (60-99)
[2017-08-13 04:45] LABS: BASOPHILS 0 %; EOSINOPHILS 2.8 %; EOSINOPHILS ABSOLUTE 0.18 10/3/uL (0.0-0.53); HEMATOCRIT 32.9 % (36.0-48.0); HEMOGLOBIN 10.1 g/dL (12.0-16.0); IMMATURE GRANULOCYTES 0.3 %; IMMATURE GRANULOCYTES ABSOLUTE 0.02 10/3/uL (0.0-0.11); LYMPHOCYTES 34.7 %; LYMPHOCYTES ABSOLUTE 2.25 10/3/uL (0.67-4.30); MANUAL DIFF NO %; MEAN CORPUS HGB CONC 30.7 g/dL (32.0-36.0); MEAN CORPUSCULAR HEMOGLOB 28.2 pg (26.0-34.0); MEAN CORPUSCULAR VOLUME 91.9 fL (80-100); MEAN PLATELET VOLUME 9.6 fL (9.2-13.0); MONOCYTES ABSOLUTE 0.65 10/3/uL (0.21-1.20); NEUTROPHILS 52.2 %; NEUTROPHILS ABSOLUTE 3.38 10/3/uL (2.02-8.40); PLATELET COUNT 206 10/3/uL (150-400); RED CELL COUNT 3.58 10/6/uL (4.0-5.6); WHITE BLOOD CELLS 6.5 10/3/uL (4.5-10.5)
[2017-08-13 04:57] LABS: CALCIUM, SERUM 8.1 MG/DL (8.5-10.4); CHLORIDE, SERUM 102 MMOL/L (96-112); CO2 (CARBON DIOXIDE) 37 MMOL/L (24-34); CREATININE 0.61 MG/DL (0.55-1.02); GFR AFRICAN AMERICAN 118 ML/MIN (>=60); GFR NON AFRICAN AMERICAN 102 ML/MIN (>=60); SODIUM, SERUM 141 MMOL/L (135-148)
[2017-08-13 04:58] LABS: BUN (BLOOD UREA NITROGEN) 27 MG/DL (6-23); GLUCOSE, SERUM 42 MG/DL (60-99); POTASSIUM, SERUM 4.7 MMOL/L (3.5-5.3)
[2017-08-14] MEDS ORDERED: PCET PO (11:53)
[2017-08-14] MEDS ORDERED: COREG6 PO (11:53)
[2017-08-14] MEDS ORDERED: XARELTO20 MG PO (11:54)
[2017-08-14] MEDS ORDERED: CRESTOR10 PO (11:54)
== END 2017-08-15 02:00 | disposition hospice, home (50) | DRG 207 ==
LOC: ENRESERV → ENRESERVTM → ENRESERVDT → 2SO 11:02 → CCU 11:02 → 2SO 08-12 16:24
PROVIDERS: Internal Medicine Critical Care Medicine; Internal Medicine Pulmonary Disease
PROC: 0BH17EZ Insertion of Endotracheal Airway into Trachea, Via Natural or Artificial Opening (ICD-10-PCS; principal; 2017-08-05)
PROC: 5A1955Z Respiratory Ventilation, Greater than 96 Consecutive Hours (ICD-10-PCS; 2017-08-05)
PROC: 02HV33Z Insertion of Infusion Device into Superior Vena Cava, Percutaneous Approach (ICD-10-PCS; 2017-08-05)
DX: J96.21 Acute and chronic respiratory failure with hypoxia (principal); J15.5 Pneumonia due to Escherichia coli; G93.41 Metabolic encephalopathy; N17.9 Acute kidney failure, unspecified; I50.32 Chronic diastolic (congestive) heart failure; G20 Parkinson's disease; E66.2 Morbid (severe) obesity with alveolar hypoventilation; L97.909 Non-pressure chronic ulcer of unspecified part of unspecified lower leg with unspecified severity; J44.0 Chronic obstructive pulmonary disease with (acute) lower respiratory infection; J44.1 Chronic obstructive pulmonary disease with (acute) exacerbation; Z68.43 Body mass index [BMI] 50.0-59.9, adult; J96.22 Acute and chronic respiratory failure with hypercapnia; E11.65 Type 2 diabetes mellitus with hyperglycemia; G40.909 Epilepsy, unspecified, not intractable, without status epilepticus; G25.81 Restless legs syndrome; G47.33 Obstructive sleep apnea (adult) (pediatric); G89.4 Chronic pain syndrome; E78.5 Hyperlipidemia, unspecified; I89.0 Lymphedema, not elsewhere classified; Z99.81 Dependence on supplemental oxygen; Z86.718 Personal history of other venous thrombosis and embolism; Z86.711 Personal history of pulmonary embolism; Z83.3 Family history of diabetes mellitus; Z82.49 Family history of ischemic heart disease and other diseases of the circulatory system; Z88.5 Allergy status to narcotic agent; Z88.8 Allergy status to other drugs, medicaments and biological substances
CPT/HCPCS: 31720; 36569; 36600; 70450; 70551; 71010; 74000; 80048; 80053; 80069; 80198; 81001; 82140; 82330; 82550; 82553; 82607; 82746; 82805; 82962; 83036; 83605; 83615; 83735; 83880; 84100; 84145; 84439; 84443; 84484; 85025; 85610; 85730; 87040; 87070; 87077; 87186; 87205; 87449; 87493; 87493-59; 87641; 93005; 94002; 94003; 94640; 94660; 94770; A9270-GY; C1751; C9113; J1940; J1953; J2185; J2543; J2920; J3010; J3370